=== PATIENT | female | born 1985 | race Caucasian/White ===

== ENCOUNTER 2016-10-15 22:35 | Emergency (ER) | payer OTHER ==
[~2016-10-15] VITALS: Ht 180.3 cm; Wt 135.0 kg
[~2016-10-15 22:35] MED LIST: BENTYL10 MG PO; CIPRO500 MG PO; CITALOPRAM HBR20 MG PO; FLEXERIL5 MG PO; METRONIDAZOLE500 MG PO; NORCO 5/3251 TABLET PO; PREDNISONE10 MG PO; PROMETHAZINE HC25 M1 PO; PROTONIX40 MG PO; TERBINAFINE HCL30 GM TP; TESSALON PERLE100 MG PO; TRAMADOL HCL50 MG PO; ULTRAM50 MG PO; VENTOLIN HFA18 GM IH; ZOFRAN ODT4 MG PO
[2016-10-16] MEDS ORDERED: ANAPROX DS550 M1 PO (00:26)
[2016-10-16 00:27] VITALS: BP 136/88
== END 2016-10-16 00:29 | disposition home or self-care (01) ==
LOC: EME 22:35
DX: M25.561 Pain in right knee (principal); F17.200 Nicotine dependence, unspecified, uncomplicated
CPT/HCPCS: 73564; 99281; 99285

== ENCOUNTER 2016-11-11 16:17 | Emergency (ER) | payer OTHER ==
[~2016-11-11] VITALS: Ht 182.9 cm; Wt 132.1 kg
[~2016-11-11 16:17] MED LIST changes: +ANAPROX DS550 M1 PO
[2016-11-11] MEDS ORDERED: ATARAX,VISTARIL25 MG PO (16:49)
[2016-11-11 17:03] VITALS: BP 124/81
== END 2016-11-11 17:21 | disposition home or self-care (01) ==
LOC: EME 16:17
DX: T78.40XA Allergy, unspecified, initial encounter (principal); L30.9 Dermatitis, unspecified; F17.200 Nicotine dependence, unspecified, uncomplicated; Z88.8 Allergy status to other drugs, medicaments and biological substances
CPT/HCPCS: 99281; 99284